=== PATIENT | male | born 1990 | race American Indian/Alaskan Native ===

== ENCOUNTER 2019-05-05 04:00 | Emergency (ER) | payer OTHER ==
[2019-05-05 04:45] VITALS: BP 112/66
[2019-05-05] MEDS ORDERED: IBUPROFEN 800 MG TAB PO ONE (07:27)
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
== END 2019-05-05 08:53 | disposition home or self-care (01) ==
LOC: ED 04:00
DX: S39.012A Strain of muscle, fascia and tendon of lower back, initial encounter (principal); F12.10 Cannabis abuse, uncomplicated; V49.59XA Passenger injured in collision with other motor vehicles in traffic accident, initial encounter; Y93.89 Activity, other specified; Y92.89 Other specified places as the place of occurrence of the external cause; Y99.8 Other external cause status
CPT/HCPCS: 72100; 99283

== ENCOUNTER 2020-12-07 20:33 | Emergency (ER) | payer SELFPAY ==
[2020-12-07 23:38] VITALS: BP 97/48
[2020-12-08] MEDS ORDERED: FAMOTIDINE 20 MG/2 ML INJ IV ONE (00:18)
[2020-12-08] MEDS ORDERED: ONDANSETRON 4 MG/2 ML INJ IV ONE (00:18)
[2020-12-08] MEDS ORDERED: HYOSCYAMINE SUBL 0.125 MG TAB SL ONE (00:18)
--- NOTE | 2020-12-08 00:20 | Event Note ---
ED Screening Note Date of service: 12/08/20 Time: 00:19 ED Screening Note: 30-year-old male patient presents to the emergency department with complaints of abdominal pain, nausea, vomiting, and diarrhea starting yesterday. No known sick contacts. No current steroid or antibiotic use. No recent travel. No alcohol use. No new medications. No history of prior abdominal surgeries. Blood pressure 97/48 in triage. General: Awake, appropriately interactive, no acute distress. Neck: Supple. Full range of motion intact. Cardiovascular: Normal peripheral perfusion. Pulmonary: No respiratory distress. Patient is speaking normally without use of accessory muscles. Abdomen: Soft, nondistended. Mild periumbilical tenderness. Skin: No apparent rashes or lesions. Neurological: No facial asymmetry. Speech is clear. Follows commands. Patient is alert and oriented. Musculoskeletal: Moves all four extremities spontaneously with normal range of motion. Psych: Cooperative. Appropriate mood and affect. Labs, IV fluids, antiemetics ordered. Decision to obtain imaging deferred to additional ED providers following complete history and physical examination. I have greeted and performed a focused rapid initial assessment of this patient. A comprehensive ED assessment and evaluation of the patient, analysis of all test results, and completion of the medical decision-making process will be conducted by additional ED providers. This initial assessment/diagnostic orders/clinical plan/treatment(s) is/are subject to change based on patients health status, clinical progression and re-assessment. Further treatment and workup at subsequent clinical provider's discretion. Patient/guardian urged not to elope from the ED as their condition may be serious if not clinically assessed and managed.
[2020-12-08 00:59] LABS: Basophils % (Auto) 0.3 % (0.0-1.8); Eosinophils % (Auto) 0.2 % (0.0-4.3); Hematocrit 42.8 % (35.5-45.6); Hemoglobin 13.5 gm/dl (11.8-15.2); Lymphocytes # (Auto) 1.7 K/mm3 (1.2-5.4); Lymphocytes % (Auto) 12.2 % (13.4-35.0); Mean Corpuscular HGB Conc 32 % (32-34); Mean Corpuscular Volume 77 fl (84-94); Monocytes # (Auto) 1.4 K/mm3 (0.0-0.8); Monocytes % (Auto) 10.6 % (0.0-7.3); Platelet Count 335 K/mm3 (140-440); Red Blood Count 5.53 M/mm3 (3.65-5.03)
[2020-12-08 01:08] LABS: Alanine Aminotransferase 72 units/L (7-56); Albumin 4.1 g/dL (3.9-5); BUN/Creatinine Ratio 14; Blood Urea Nitrogen 10 mg/dL (9-20); Calcium 9.4 mg/dL (8.4-10.2); Hemolysis Index 7
[2020-12-08] MEDS ORDERED: FAMOTIDINE 20 MG TAB PO ONE (02:17)
[2020-12-08] MEDS ORDERED: ONDANSETRON 4 MG ODT TAB PO ONE (02:17)
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
== END 2020-12-08 02:54 | disposition home or self-care (01) ==
LOC: ED 20:33
DX: R10.84 Generalized abdominal pain (principal); R11.2 Nausea with vomiting, unspecified; R19.7 Diarrhea, unspecified
CPT/HCPCS: 36415; 80053; 83690; 83735; 85025; 99283; J2405; Q0162